=== PATIENT | male | born 1960 | race Caucasian/White ===

== ENCOUNTER 2021-04-20 11:35 | Emergency (ER) | payer BC ==
[2021-04-20] MEDS ORDERED: Lidocaine 1% with EPINEPHrine 1:100,000 50 ML MDV INJECT ONE (11:52)
[2021-04-20] MEDS ORDERED: Diphtheria,Pertussis(Acell),Tetanus Vaccine 0.5 ML Syringe IM ONE (11:52)
--- NOTE | 2021-04-20 12:17 | EDM.PDOC ---
ED HPI GENERAL MEDICAL PROBLEM - General Chief Complaint: Laceration Stated Complaint: hook in hand Time Seen by Provider: 04/20/21 11:55 Source of Information: Reports: Patient, RN Notes Reviewed History Limitations: Reports: No Limitations - History of Present Illness INITIAL COMMENTS - FREE TEXT/NARRATIVE: Leonardo presents today with complaints of fish hook to right hand that occurred while [place]. He denies any other injury or trauma. He denies fever, chills, nausea, vomiting, change in bowel/bladder or other concerns. Unknown last Tetanus Right Hand Pain Score (Numeric/FACES): 2 - Related Data Allergies Allergy/AdvReac Type Severity Reaction Status Date / Time No Known Allergies Allergy Verified 04/20/21 11:56 Home Meds: Home Meds NK [No Known Home Meds] 04/20/21 [History] Past Medical History HEENT History: Reports: Other (See Below) Other HEENT History: wears glasses Endocrine/Metabolic History: Reports: Obesity/BMI 30+ Social & Family History - Tobacco Use Tobacco Use Status *Q: Current Every Day Tobacco User Years of Tobacco use: 40 Packs/Tins Daily: 2 - Caffeine Use Caffeine Use: Reports: Coffee - Alcohol Use Days Per Week of Alcohol Use: 5 Number of Drinks Per Day: 5 Total Drinks Per Week: 25 - Recreational Drug Use Recreational Drug Use: No ED ROS GENERAL - Review of Systems Review Of Systems: See Below Constitutional: Reports: No Symptoms HEENT: Reports: No Symptoms Respiratory: Reports: No Symptoms Cardiovascular: Reports: No Symptoms Endocrine: Reports: No Symptoms GI/Abdominal: Reports: No Symptoms : Reports: No Symptoms Musculoskeletal: Reports: No Symptoms Skin: Reports: Wound (fish hook to right hand web space between thumb and index finger), Other (puncture wound right hand from fish hook) Neurological: Reports: No Symptoms, Change in Speech Hematologic/Lymphatic: Reports: No Symptoms Immunologic: Reports: No Symptoms ED EXAM, SKIN/RASH Exam: See Below Exam Limited By: No Limitations General Appearance: Alert, WD/WN, No Apparent Distress Head: Atraumatic, Normocephalic Respiratory/Chest: No Respiratory Distress, Lungs Clear, Normal Breath Sounds, No Accessory Muscle Use, Chest Non-Tender. No: Crackles, Rales, Rhonchi, Wh eezing Cardiovascular: Normal Peripheral Pulses, Regular Rate, Rhythm, No Edema, No Gallop, No Murmur, No Rub Peripheral Pulses: 3+: Radial (L), Radial (R) Back Exam: Normal Inspection, Full Range of Motion. No: CVA Tenderness (R), CVA Tenderness (L) Extremities: Normal Inspection, Normal Range of Motion, No Pedal Edema, Normal Capillary Refill, Other (Pain to right hand at site of fish hook, three barbed hook with one fabrice into skin. ) Neurological: Alert, Oriented, Normal Cognition, Normal Gait, No Motor/Sensory Deficits Psychiatric: Normal Affect, Normal Mood Skin: Warm, Dry, Normal Color. No: Ecchymosis, Erythema Location, Skin: Other (one fabrice of three fabrice fish hook to right hand to anatomical snuff box, sensation intact) Associated features: Tenderness Lymphatic: No Adenopathy ED SKIN PROCEDURES - Foreign Body Removal Indication:: Fish hook to right hand to web space between right thumb and right index finger One fabrice imbedded of three barbed hook Bleeding controlled Consent Obtained:: Patient Performing Doctor:: Olamide Cortez A Foreign Body Other Location Comment:: right hand Anesthesia Type: Local Anesthesia Other:: Area cleansed with alcohol wipe Lidocaine 1% with epi 1ml direct infiltration Complications:: No Comments:: Area localized with lidocaine, hook pushed through skin, end of hook clipped off with clipper. Hook retracted without difficulty, all pieces fo hook identified. Patient ROM intact, no bleeding noted. Area washed with soap and water, bandage applied. Patient is a clinical nursing professor by profession, hard copy script provided for antibiotic if infection develops. Patient tolerated well. Tetanus updated. Course - Vital Signs Last Recorded V/S: Last Vital Signs Temp 36.1 C 04/20/21 12:09 Pulse 78 04/20/21 12:09 Resp 16 04/20/21 12:09 BP 148/78 H 04/20/21 12:09 Pulse Ox 96 04/20/21 12:09 - Orders/Labs/Meds Orders: Active Orders 24 hr Category Date Time Status Vaccines to be Administered [RC] PER UNIT ROUTINE Care 04/20/21 11:53 Active Meds: Medications Discontinued Medications Generic Name Dose Route Start Last Admin Trade Name Freq PRN Reason Stop Dose Admin Diphtheria/Tetanus/Acell Pertussis 0.5 ml 04/20/21 11:52 04/20/21 12:00 Diphtheria,Pertussis(Acell),Tetanus Vaccine 0.5 Ml Syringe IM 04/20/21 11:53 0.5 ml .ONCE ONE Administration Lidocaine/Epinephrine 2 ml 04/20/21 11:52 04/20/21 12:00 Lidocaine 1% With Epinephrine 1:100,000 50 Ml Mdv INJECT 04/20/21 11:53 2 ml ONETIME ONE Administration Departure - Departure Time of Disposition: 12:15 Disposition: Home, Self-Care 01 Condition: Good Clinical Impression: Fish hook injury of hand - Discharge Information *PRESCRIPTION DRUG MONITORING PROGRAM REVIEWED*: No *COPY OF PRESCRIPTION DRUG MONITORING REPORT IN PATIENT JOE: No Instructions: Puncture Wound, [id number] Referrals: PCP,None [Primary Care Provider] - Forms: ED Department Discharge Additional Instructions: You have been evaluated and treated for a fish hook to the right hand. Take acetaminophen for pain. Keep hand clean and dry. Watch for signs of infection such as redness, warmth and discolored drainage. If signs are present, start use of cephalexin as directed and follow up with primary provider. Return for any worsening, issues or concerns. Your Tetanus was updated today. Sepsis Event Note (ED) - Evaluation Sepsis Screening Result: No Definite Risk - Focused Exam Vital Signs: Vital Signs Temp Pulse Resp BP Pulse Ox 04/20/21 12:09 36.1 C 78 16 148/78 H 96 - My Orders Last 24 Hours: My Active Orders 04/20/21 11:53 Vaccines to be Administered [RC] PER UNIT ROUTINE - Assessment/Plan Last 24 Hours: My Active Orders 04/20/21 11:53 Vaccines to be Administered [RC] PER UNIT ROUTINE Assessment:: Fish hook injury of hand Plan: Patient evaluated and treated for a fish hook to the right hand. Take acetaminophen for pain. Keep hand clean and dry. Watch for signs of infection such as redness, warmth and discolored drainage. If signs are present, start use of cephalexin as directed and follow up with primary provider. Hard copy script provided for cephalexin 1000mg PO BID for 10 days. Return for any worsening, issues or concerns. Tetanus was updated today.
== END 2021-04-20 12:50 | disposition home or self-care (01) ==
LOC: JP.ED 11:35
DX: S60.551A Superficial foreign body of right hand, initial encounter (principal); Z23 Encounter for immunization; W45.8XXA Other foreign body or object entering through skin, initial encounter
CPT/HCPCS: 90471; 90715; 99283-25